=== PATIENT | male | born 1990 | race Caucasian/White ===

== ENCOUNTER 2016-10-15 01:42 | Emergency (ER) | payer SELFPAY ==
[~2016-10-15] VITALS: Ht 182.9 cm; Wt 70.3 kg
[~2016-10-15 01:42] MED LIST: CLINDAMYCIN HC300 MG PO; TRAMADOL HCL50 MG PO
[2016-10-15] MEDS ORDERED: CEPHALEXIN500 MG PO (02:12)
[2016-10-15] MEDS ORDERED: TRAMADOL HCL50 MG PO (02:12)
== END 2016-10-15 02:21 | disposition home or self-care (01) ==
LOC: ED 01:42
DX: K08.89 Other specified disorders of teeth and supporting structures (principal); F17.200 Nicotine dependence, unspecified, uncomplicated; Z87.01 Personal history of pneumonia (recurrent)
CPT/HCPCS: 99283

== ENCOUNTER 2016-12-12 03:51 | Emergency (ER) | payer SELFPAY ==
[~2016-12-12] VITALS: Ht 182.9 cm; Wt 6.8 kg
[~2016-12-12 03:51] MED LIST changes: +CEPHALEXIN500 MG PO
== END 2016-12-12 04:56 | disposition home or self-care (01) ==
LOC: ED 03:51
DX: G43.909 Migraine, unspecified, not intractable, without status migrainosus (principal); K22.6 Gastro-esophageal laceration-hemorrhage syndrome; F17.200 Nicotine dependence, unspecified, uncomplicated; Z87.01 Personal history of pneumonia (recurrent)
CPT/HCPCS: 85025; 99283

== ENCOUNTER 2016-12-23 12:28 | Emergency (ER) | payer SELFPAY ==
[~2016-12-23] VITALS: Ht 182.9 cm; Wt 70.3 kg
[2016-12-23] MEDS ORDERED: ADVIL200 M1 PO (12:38)
[2016-12-23] MEDS ORDERED: KETOROLAC TROME10 MG PO (14:04)
[2016-12-23] MEDS ORDERED: CLEOCIN HCL300 MG PO (14:04)
== END 2016-12-23 12:49 | disposition home or self-care (01) ==
LOC: ED 12:28
DX: Z00.8 Encounter for other general examination (principal)

== ENCOUNTER 2016-12-23 13:45 | Emergency (ER) | payer SELFPAY ==
[~2016-12-23] VITALS: Ht 182.9 cm; Wt 70.3 kg
[~2016-12-23 13:45] MED LIST changes: +ADVIL200 M1 PO
[2016-12-23] MEDS ORDERED: KETOROLAC TROME10 MG PO (14:04)
[2016-12-23] MEDS ORDERED: CLEOCIN HCL300 MG PO (14:04)
== END 2016-12-23 14:08 | disposition home or self-care (01) ==
LOC: ED 13:45
DX: K02.9 Dental caries, unspecified (principal); F17.200 Nicotine dependence, unspecified, uncomplicated; Z87.01 Personal history of pneumonia (recurrent)
CPT/HCPCS: 99283

== ENCOUNTER 2017-09-30 11:15 | Emergency (ER) | payer SELFPAY ==
[~2017-09-30] VITALS: Ht 182.9 cm; Wt 70.3 kg
[~2017-09-30 11:15] MED LIST changes: +CLEOCIN HCL300 MG PO; +KETOROLAC TROME10 MG PO
== END 2017-09-30 13:21 | disposition home or self-care (01) ==
LOC: ED 11:15
DX: R10.31 Right lower quadrant pain (principal); F17.200 Nicotine dependence, unspecified, uncomplicated
CPT/HCPCS: 80053; 81001; 85025; 99283

== ENCOUNTER 2018-07-03 09:06 | Emergency (ER) | payer SELFPAY ==
[~2018-07-03] VITALS: Ht 182.9 cm; Wt 70.3 kg
--- OUTSIDE RECORDS SUMMARY | 2018-07-03 09:10 | XMS ---
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 Care History Medical/Surgical 10/03/2017 [facility] Care Recommendation: This patient has had 5 or more Emergency Department visits in the last 12 months.\T\nbsp; Patient requires education on the scope and purpose of the ED as an acute care provider not a Primary Care Provider and should not be utilized for chronic conditions.\T\nbsp; If patient returns to ED please contact Community Health WorkerEmperatriz at [phone]. These are guidelines and the provider should exercise clinical judgment when providing care. E.D. VISIT COUNT (12 MO.) 2 [facility] TOTAL 2 NOTE: Visits indicate total known visits. ED/UCC VISIT TRACKING (12 MO.) 07/03/2018 09:06 [facility] TYPE: Emergency COMPLAINT: - JAW PAIN, EAR PAIN 09/30/2017 11:15 [facility] TYPE: Emergency COMPLAINT: - ABD PAIN DIAGNOSES: - Nicotine dependence, unspecified, uncomplicated - Right lower quadrant pain INPATIENT VISIT TRACKING (12 MO.) No inpatient visits to display in this time frame [email or web address]
== END 2018-07-03 09:32 | disposition home or self-care (01) ==
LOC: ED 09:06
DX: H92.01 Otalgia, right ear (principal); R68.84 Jaw pain

== ENCOUNTER 2018-07-13 18:06 | Emergency (ER) | payer SELFPAY ==
[~2018-07-13] VITALS: Ht 182.9 cm; Wt 70.3 kg
--- OUTSIDE RECORDS SUMMARY | 2018-07-13 18:10 | XMS ---
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 Care History Medical/Surgical 10/03/2017 [facility] Care Recommendation: This patient has had 5 or more Emergency Department visits in the last 12 months.\T\nbsp; Patient requires education on the scope and purpose of the ED as an acute care provider not a Primary Care Provider and should not be utilized for chronic conditions.\T\nbsp; If patient returns to ED please contact Community Health WorkerEmperatriz at [phone]. These are guidelines and the provider should exercise clinical judgment when providing care. E.D. VISIT COUNT (12 MO.) 3 [facility] TOTAL 3 NOTE: Visits indicate total known visits. ED/C VISIT TRACKING (12 MO.) 07/13/2018 18:07 [facility] TYPE: Emergency COMPLAINT: - R TESTICLE PAIN 07/03/2018 09:06 [facility] TYPE: Emergency COMPLAINT: - JAW PAIN, EAR PAIN DIAGNOSES: - Otalgia, right ear - Jaw pain 09/30/2017 11:15 [facility] TYPE: Emergency COMPLAINT: - ABD PAIN DIAGNOSES: - Nicotine dependence, unspecified, uncomplicated - Right lower quadrant pain INPATIENT VISIT TRACKING (12 MO.) No inpatient visits to display in this time frame [id number]
[2018-07-13] MEDS ORDERED: CIPRO500 MG PO (21:33)
== END 2018-07-13 21:40 | disposition home or self-care (01) ==
LOC: ED 18:06
DX: N45.1 Epididymitis (principal); F17.200 Nicotine dependence, unspecified, uncomplicated
CPT/HCPCS: 76870; 81001; 99284-25

== ENCOUNTER 2018-07-21 20:41 | Emergency (ER) | payer SELFPAY ==
[~2018-07-21] VITALS: Ht 182.9 cm; Wt 72.5 kg
[~2018-07-21 20:41] MED LIST changes: +CIPRO500 MG PO
--- OUTSIDE RECORDS SUMMARY | 2018-07-21 20:44 | XMS ---
PreManage Notification: LEX LEONARDO Security Hospital Medical Biller Events No recent Security Events currently on file CRITERIA MET - Group Notification - [facility] - Has Care Guidelines - [facility] - 2 Visits in 30 Days CARE PROVIDERS [place] Nurse Practitioner: Family 10/03/2017-Current PHONE: Unknown Jak has no Care Guidelines for this patient. Care History Medical/Surgical 07/17/2018 [facility] - CHW IS UNABLE TO CONTACT PATIENT. LEFT 3 MESSAGES. NO RESPONSE. - PLEASE CONTACT ERICK [phone] IF PATIENT IS SEEN IN THE ED TO APPLY FOR MEDICAL BENEFITS. - PATIENT NEEDS A PCP. 10/03/2017 [facility] Care Recommendation: This patient has had 5 or more Emergency Department visits in the last 12 months.\T\nbsp; Patient requires education on the scope and purpose of the ED as an acute care provider not a Primary Care Provider and should not be utilized for chronic conditions.\T\nbsp; If patient returns to ED please contact Community Health WorkerEmperatriz at [phone]. These are guidelines and the provider should exercise clinical judgment when providing care. E.D. VISIT COUNT (12 MO.) 4 [facility] TOTAL 4 NOTE: Visits indicate total known visits. ED/UCC VISIT TRACKING (12 MO.) 07/21/2018 20:42 [facility] TYPE: Emergency COMPLAINT: - FACIAL SWELLING 07/13/2018 18:07 [facility] TYPE: Emergency COMPLAINT: - R TESTICLE PAIN DIAGNOSES: - Epididymitis - Right testicular pain - Nicotine dependence, unspecified, uncomplicated 07/03/2018 09:06 [facility] TYPE: Emergency COMPLAINT: - JAW PAIN, EAR PAIN DIAGNOSES: - Otalgia, right ear - Jaw pain 09/30/2017 11:15 [facility] TYPE: Emergency COMPLAINT: - ABD PAIN DIAGNOSES: - Nicotine dependence, unspecified, uncomplicated - Right lower quadrant pain INPATIENT VISIT TRACKING (12 MO.) No inpatient visits to display in this time frame [email or web address]
[2018-07-21] MEDS ORDERED: CEPHALEXIN500 MG PO (21:03)
[2018-07-21] MEDS ORDERED: ACETAMINOPHEN-1 EAC1 PO (21:03)
== END 2018-07-21 21:28 | disposition home or self-care (01) ==
LOC: ED 20:41
DX: K08.89 Other specified disorders of teeth and supporting structures (principal); Z87.01 Personal history of pneumonia (recurrent); F17.200 Nicotine dependence, unspecified, uncomplicated
CPT/HCPCS: 99282

== ENCOUNTER 2019-07-25 14:49 | Emergency (ER) | payer BC ==
[~2019-07-25] VITALS: Ht 182.9 cm; Wt 72.6 kg
[~2019-07-25 14:49] MED LIST changes: +ACETAMINOPHEN-1 EAC1 PO; +PENICILLIN V P500 MG PO
--- OUTSIDE RECORDS SUMMARY | 2019-07-25 14:52 | XMS ---
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 - Has Care Guidelines CARE PROVIDERS [place] Nurse Practitioner: Family 10/03/2017-Current PHONE: [phone] Jak has no Care Guidelines for this patient. Care History Medical/Surgical 07/24/2018 [facility] - CHW CONTACTED PATIENT\T\nbsp; GIRLFRIEND WHO ANSWERED PATIENT PHONE. DISCUSSED PATIENT NEEDS FOR INSURANCE. - CHW PROVIDED CONTACT TO ERICK. 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 07/17/2018 [facility] - CHW IS UNABLE TO CONTACT PATIENT. LEFT 3 MESSAGES. NO RESPONSE. - PLEASE CONTACT ERICK [phone] IF PATIENT IS SEEN IN THE ED TO APPLY FOR MEDICAL BENEFITS. - PATIENT NEEDS A PCP. 10/03/2017 [facility] Care Recommendation: This patient has had 5 or more Emergency Department visits in the last 12 months.\T\nbsp; Patient requires education on the scope and purpose of the ED as an acute care provider not a Primary Care Provider and should not be utilized for chronic conditions.\T\nbsp; If patient returns to ED please contact Community Health WorkerEmperatriz at [phone]. These are guidelines and the provider should exercise clinical judgment when providing care. E.D. VISIT COUNT (12 MO.) [address] [facility] TOTAL 2 NOTE: Visits indicate total known visits. ED/UCC VISIT TRACKING (12 MO.) 07/25/2019 14:50 [facility] TYPE: Emergency COMPLAINT: - LACERATION ON LOWER BACK 10/25/2018 17:32 [facility] TYPE: Emergency COMPLAINT: - ABSCESS, TOOTH ACHE DIAGNOSES: - Other specified disorders of teeth and supporting structures - Nicotine dependence, unspecified, uncomplicated - Periapical abscess without sinus - Personal history of pneumonia (recurrent) INPATIENT VISIT TRACKING (12 MO.) No inpatient visits to display in this time frame [email or web address]
== END 2019-07-25 17:22 | disposition home or self-care (01) ==
LOC: ED 14:49
DX: S31.010A Laceration without foreign body of lower back and pelvis without penetration into retroperitoneum, initial encounter (principal); F17.200 Nicotine dependence, unspecified, uncomplicated; X58.XXXA Exposure to other specified factors, initial encounter
CPT/HCPCS: 99282

== ENCOUNTER 2019-11-22 09:30 | Emergency (ER) | payer BC ==
[~2019-11-22] VITALS: Ht 182.9 cm; Wt 72.6 kg
--- OUTSIDE RECORDS SUMMARY | 2019-11-22 09:34 | XMS ---
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 Care History Medical/Surgical 07/24/2018 [facility] - CHW CONTACTED PATIENT\T\nbsp; GIRLFRIEND WHO ANSWERED PATIENT PHONE. DISCUSSED PATIENT NEEDS FOR INSURANCE. - CHW PROVIDED CONTACT TO ERICK. 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 07/17/2018 [facility] - CHW IS UNABLE TO CONTACT PATIENT. LEFT 3 MESSAGES. NO RESPONSE. - PLEASE CONTACT ERICK [phone] IF PATIENT IS SEEN IN THE ED TO APPLY FOR MEDICAL BENEFITS. - PATIENT NEEDS A PCP. 10/03/2017 [facility] Care Recommendation: This patient has had 5 or more Emergency Department visits in the last 12 months.\T\nbsp; Patient requires education on the scope and purpose of the ED as an acute care provider not a Primary Care Provider and should not be utilized for chronic conditions.\T\nbsp; If patient returns to ED please contact Community Health WorkerEmperatriz at [phone]. These are guidelines and the provider should exercise clinical judgment when providing care. E.D. VISIT COUNT (12 MO.) [address] [facility] TOTAL 2 NOTE: Visits indicate total known visits. ED/UCC VISIT TRACKING (12 MO.) 11/22/2019 09:31 [facility] TYPE: Emergency COMPLAINT: - R SIDE RIB PAIN 07/25/2019 14:50 [facility] TYPE: Emergency COMPLAINT: - LACERATION ON LOWER BACK DIAGNOSES: - Exposure to other specified factors, initial encounter - Laceration without foreign body of lower back and pelvis with - Laceration without foreign body of lower back and pelvis with - Nicotine dependence, unspecified, uncomplicated INPATIENT VISIT TRACKING (12 MO.) No inpatient visits to display in this time frame [email or web address]
== END 2019-11-22 13:11 | disposition home or self-care (01) ==
LOC: ED 09:30
DX: R07.9 Chest pain, unspecified (principal); F17.200 Nicotine dependence, unspecified, uncomplicated
CPT/HCPCS: 71046; 99284-25

== ENCOUNTER 2021-04-20 09:44 | Emergency (ER) | payer SELFPAY ==
[~2021-04-20] VITALS: Ht 182.9 cm; Wt 72.6 kg
--- OUTSIDE RECORDS SUMMARY | 2021-04-20 09:52 | XMS ---
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 Care History Medical/Surgical 07/24/2018 [facility] - CHW CONTACTED PATIENT\T\nbsp; GIRLFRIEND WHO ANSWERED PATIENT PHONE. DISCUSSED PATIENT NEEDS FOR INSURANCE. - CHW PROVIDED CONTACT TO ERICK. 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 07/17/2018 [facility] - CHW IS UNABLE TO CONTACT PATIENT. LEFT 3 MESSAGES. NO RESPONSE. - PLEASE CONTACT ERICK [phone] IF PATIENT IS SEEN IN THE ED TO APPLY FOR MEDICAL BENEFITS. - PATIENT NEEDS A PCP. 10/03/2017 [facility] Care Recommendation: This patient has had 5 or more Emergency Department visits in the last 12 months.\T\nbsp; Patient requires education on the scope and purpose of the ED as an acute care provider not a Primary Care Provider and should not be utilized for chronic conditions.\T\nbsp; If patient returns to ED please contact Community Health WorkerEmperatriz at [phone]. These are guidelines and the provider should exercise clinical judgment when providing care. E.D. VISIT COUNT (12 MO.) 1 [facility] TOTAL 1 NOTE: Visits indicate total known visits. ED/UCC VISIT TRACKING (12 MO.) 04/20/2021 09:46 [facility] TYPE: Emergency COMPLAINT: - CHEST PAIN, L HAND TINGLING INPATIENT VISIT TRACKING (12 MO.) No inpatient visits to display in this time frame [email or web address]
--- NOTE | 2021-04-20 18:36 | EKG ---
[facility] [address] [place], [place] [address] Signed Normal sinus rhythm Normal ECG No previous ECGs available Confirmed by ANGEL MCCANN DO ([id number]) on 04/20/2021 6:35:53 PM Electronically Signed By: ANGEL MCCANN DO 04/20/21 1836 PATIENT NAME: LEX LEONARDO Electrocardiogram DATE OF : 88 PHYSICIAN: ANGEL MCCANN DO REPORT #: [id number] REPORT IS CONFIDENTIAL AND NOT TO BE RELEASED WITHOUT AUTHORIZATION
== END 2021-04-20 11:52 | disposition home or self-care (01) ==
LOC: ED 09:44
DX: R07.89 Other chest pain (principal); F17.200 Nicotine dependence, unspecified, uncomplicated
CPT/HCPCS: 84484; 93005; 93010; 99285-25

== ENCOUNTER 2021-08-24 11:30 | Emergency (ER) | payer OTHER ==
[~2021-08-24] VITALS: Ht 182.9 cm; Wt 88.5 kg
--- OUTSIDE RECORDS SUMMARY | 2021-08-24 11:34 | XMS ---
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 Care History Medical/Surgical 07/24/2018 [facility] - CHW CONTACTED PATIENT\T\nbsp; GIRLFRIEND WHO ANSWERED PATIENT PHONE. DISCUSSED PATIENT NEEDS FOR INSURANCE. - CHW PROVIDED CONTACT TO ERICK. 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 07/17/2018 [facility] - CHW IS UNABLE TO CONTACT PATIENT. LEFT 3 MESSAGES. NO RESPONSE. - PLEASE CONTACT ERICK [phone] IF PATIENT IS SEEN IN THE ED TO APPLY FOR MEDICAL BENEFITS. - PATIENT NEEDS A PCP. 10/03/2017 [facility] Care Recommendation: This patient has had 5 or more Emergency Department visits in the last 12 months.\T\nbsp; Patient requires education on the scope and purpose of the ED as an acute care provider not a Primary Care Provider and should not be utilized for chronic conditions.\T\nbsp; If patient returns to ED please contact Community Health WorkerEmperatriz at [phone]. These are guidelines and the provider should exercise clinical judgment when providing care. E.D. VISIT COUNT (12 MO.) 3 [facility] TOTAL 3 NOTE: Visits indicate total known visits. ED/UCC VISIT TRACKING (12 MO.) 08/24/2021 11:31 [facility] TYPE: Emergency COMPLAINT: - PAIN R SIDE NECK 07/06/2021 09:43 [facility] TYPE: Emergency COMPLAINT: - DENTAL PROBLEM 04/20/2021 09:[address] [facility] [place] TYPE: Emergency COMPLAINT: - CHEST PAIN, L HAND TINGLING DIAGNOSES: - Nicotine dependence, unspecified, uncomplicated - Other chest pain INPATIENT VISIT TRACKING (12 MO.) No inpatient visits to display in this time frame [email or web address]
[2021-08-24] MEDS ORDERED: PREDNISONE20 MG PO (12:11)
[2021-08-24] MEDS ORDERED: METRONIDAZOLE500 MG PO (12:11)
[2021-08-24] MEDS ORDERED: PENICILLIN V P500 MG PO (12:11)
== END 2021-08-24 12:15 | disposition home or self-care (01) ==
LOC: ED 11:30
DX: R59.0 Localized enlarged lymph nodes (principal); K08.9 Disorder of teeth and supporting structures, unspecified; F17.200 Nicotine dependence, unspecified, uncomplicated
CPT/HCPCS: 99283

== ENCOUNTER 2024-07-22 15:13 | Emergency (ER) | payer OTHER ==
[~2024-07-22] VITALS: Ht 182.9 cm; Wt 85.7 kg
[~2024-07-22 15:13] MED LIST changes: +METRONIDAZOLE500 MG PO; +PREDNISONE20 MG PO
[2024-07-22 16:30] VITALS: BP 131/80
== END 2024-07-22 16:31 | disposition home or self-care (01) ==
LOC: ED 15:13
DX: R13.10 Dysphagia, unspecified (principal); F17.200 Nicotine dependence, unspecified, uncomplicated
CPT/HCPCS: 99282